=== PATIENT | female | born 1995 | race Caucasian/White ===

== ENCOUNTER 2017-07-04 16:19 | Emergency (ER) | payer SELFPAY ==
[~2017-07-04] VITALS: Ht 162.6 cm; Wt 122.5 kg
[~2017-07-04 16:19] MED LIST: FOLIC ACID; MVI; Z.0.SYNTHROID100 MCG; Z.0.VITAMIN D2000 UN
[2017-07-04] MEDS ORDERED: PREDNISONE 20 MG TAB PO ONE (16:45)
[2017-07-04] MEDS ORDERED: ALBUTEROL/IPRATROPIUM 3 ML NEB NEB ONE (16:45)
--- NOTE | 2017-07-04 17:40 | Diagnostic Imaging Report ---
PROCEDURE: Frontal and lateral views of the chest. COMPARISON: None. INDICATIONS: COUGH FINDINGS: Lines/tubes: None. Lungs: The lungs are well inflated and clear. There is no evidence of pneumonia or pulmonary edema. Pleura: There is no pleural effusion or pneumothorax. Heart and mediastinum: The heart and the mediastinum are normal. Bones: No acute bony abnormality. IMPRESSION: 1. No acute cardiopulmonary abnormalities. Thee Bliss M.D. Dictated by: Thee Bliss M.D. on 07/04/2017 at 17:41 Electronically approved by: Thee Bliss M.D. on 07/04/2017 at 17:41
== END 2017-07-04 19:46 | disposition home or self-care (01) ==
LOC: ER 16:19
DX: R05 Cough (principal); J20.9 Acute bronchitis, unspecified
CPT/HCPCS: 71046; 99283